=== PATIENT | male | born 1950 | race Two or more races ===

== ENCOUNTER 2021-10-28 07:52 | Day surgery (SDC) | payer OTHER ==
[2021-10-26 13:21] VITALS: BMI 29.0
[2021-10-28 09:40] VITALS: TEMP 96.9
[2021-10-28 09:58] VITALS: BP 113/61; PULSE 60
== END 2021-10-28 10:22 | disposition home or self-care (01) ==
LOC: FASU-ENDO 07:52
PROVIDERS: ATTEND Internal Medicine Gastroenterology
PROC: 0DJD8ZZ Inspection of Lower Intestinal Tract, Via Natural or Artificial Opening Endoscopic (ICD-10-PCS; principal; 2021-10-28 09:12)
DX: Z12.11 Encounter for screening for malignant neoplasm of colon (principal); K57.30 Diverticulosis of large intestine without perforation or abscess without bleeding; Z86.010 Personal history of colon polyps; Z83.71 Family history of colonic polyps
CPT/HCPCS: C9803-CS; U0003; U0005